=== PATIENT | male | born 2000 | race Caucasian/White ===

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

== ENCOUNTER 2023-04-09 12:33 | Emergency (ER) | payer MEDICAID ==
[2023-04-09 13:20] VITALS: BP 129/88; PULSE 100
== END 2023-04-09 14:55 | disposition home or self-care (01) ==
LOC: JP.ED 12:33
DX: R09.1 Pleurisy (principal); L60.0 Ingrowing nail; Z91.041 Radiographic dye allergy status; Z88.0 Allergy status to penicillin; Z88.8 Allergy status to other drugs, medicaments and biological substances; Z79.899 Other long term (current) drug therapy; Z86.16 Personal history of COVID-19
CPT/HCPCS: 99284

== ENCOUNTER 2023-06-02 10:10 | Emergency (ER) | payer MEDICAID ==
[2023-06-02 10:20] VITALS: BP 149/96; PULSE 78
[2023-06-02 11:11] LABS: BASE EXCESS VENOUS -0.2 mm/L; BICARBONATE,VENOUS 24.5 mmol/L; CARBOXYHEMOGLOBIN 1.9 % (0.0-1.6); O2 SATURATION VENOUS 78.6; OXYHEMOGLOBIN 76.3 %; PCO2 VENOUS 42.3 mm/Hg; PH,VENOUS 7.381 (7.350-7.450); PO2 VENOUS 43.5 mm/Hg; TOTAL HEMOGLOBIN 17.2 g/dL (13.5-18.0)
[2023-06-02 11:13] LABS: BASOPHILS ABSOLUTE AUTO 0.08 K/uL (0.00-0.10); BASOPHILS PERCENT AUTO 1.3 % (0.1-1.3); EOSINOPHILS ABSOLUTE AUTO 0.26 K/uL (0.00-0.40); EOSINOPHILS PERCENT AUTO 4.2 % (0.0-5.4); HEMATOCRIT 46.3 % (38.4-49.7); HEMOGLOBIN 16.4 g/dL (12.9-16.9); IMMATURE GRAN PERCENT AUTO 0.3 % (0.0-0.7); LYMPHOCYTES ABSOLUTE AUTO 2.03 K/uL (0.8-3.3); LYMPHOCYTES PERCENT AUTO 32.5 % (11.4-47.7); MEAN CORPUSCULAR HEMOGLOBIN 30.8 pg (31.6-35.5); MEAN CORPUSCULAR HGB CONC 35.4 g/dL (31.6-35.5); MEAN CORPUSCULAR VOLUME 86.9 fL (81.4-99.0); MONOCYTES ABSOLUTE AUTO 0.51 K/uL (0.20-0.90); MONOCYTES PERCENT AUTO 8.2 % (3.3-12.6); NEUTROPHILS ABSOLUTE AUTO 3.35 K/uL (1.0-7.6); NEUTROPHILS PERCENT AUTO 53.5 % (40.0-78.1); PLATELET COUNT,PLT 177 K/uL (130-375); RED BLOOD CELL COUNT 5.33 M/uL (4.14-5.76); WHITE BLOOD CELL COUNT,WBC 6.3 K/uL (3.2-11.0)
[2023-06-02 11:16] LABS: IMMATURE GRAN ABSOLUTE AUTO 0.02 K/uL (0.00-0.23)
[2023-06-02 11:25] LABS: CORONAVIRUS COVID-19 NAA NEGATIVE (NEGATIVE); INFLUENZA A NAA NEGATIVE (NEGATIVE); INFLUENZA B NAA NEGATIVE (NEGATIVE); RESPIRATORY SYNCYTIAL VIR NAA NEGATIVE (NEGATIVE)
[2023-06-02 11:40] LABS: A/G RATIO 1.1 (1.2-2.2); ALANINE AMINOTRANSFERASE,ALT 23 U/L (12-78); ALKALINE PHOSPHATASE 122 U/L (46-116); ASPARTATE AMNIOTRANSFERASE,AST 17 U/L (15-37); BILIRUBIN TOTAL 0.6 mg/dL (0.2-1.0); BLOOD UREA NITROGEN,BUN 11 mg/dL (7-18); CALCIUM 8.4 mg/dL (8.5-10.1); CARBON DIOXIDE,CO2 26 mmol/L (21-32); CHLORIDE,CL 104 mmol/L (100-108); CREATININE 0.9 mg/dL (0.8-1.3); EST CRCL DRUG DOSING (CG) 138.28 mL/min; ESTIMATED GFR 125 mL/min (>60); GLUCOSE RANDOM 89 mg/dL (74-106); POTASSIUM,K 3.8 mmol/L (3.6-5.2); PROTEIN TOTAL,TP 7.8 g/dL (6.4-8.2); SODIUM,NA 139 mmol/L (140-148); TROPONIN I HIGH SENSITIVITY 5.2 pg/mL (<=60.3)
[2023-06-02 11:41] LABS: ANION GAP 12.8 mmol/L (5.0-14.0)
[2023-06-02] MEDS: Acetaminophen 500 MG Tab PO ONE (12:08)
== END 2023-06-02 12:25 | disposition home or self-care (01) ==
LOC: JP.ED 10:10
DX: R09.1 Pleurisy (principal); J45.909 Unspecified asthma, uncomplicated; Z86.16 Personal history of COVID-19; Z88.0 Allergy status to penicillin; Z88.1 Allergy status to other antibiotic agents; Z91.041 Radiographic dye allergy status
CPT/HCPCS: 0241U; 36415; 71045; 80053; 82803; 83605; 84145; 84484; 85025; 85379; 85651; 93005; 99285; A9270

== ENCOUNTER 2023-06-10 15:17 | Emergency (ER) | payer MEDICAID ==
[2023-06-10 15:33] VITALS: BP 142/96; PULSE 101
[2023-06-10 16:12] LABS: STREP A BY PCR NOT DETECTED (NOT DETECT)
[2023-06-10 16:22] LABS: CORONAVIRUS COVID-19 NAA NEGATIVE (NEGATIVE); INFLUENZA A NAA NEGATIVE (NEGATIVE); INFLUENZA B NAA NEGATIVE (NEGATIVE); RESPIRATORY SYNCYTIAL VIR NAA NEGATIVE (NEGATIVE)
== END 2023-06-10 16:57 | disposition home or self-care (01) ==
LOC: JP.ED 15:17
DX: L60.0 Ingrowing nail (principal); M54.50 Low back pain, unspecified; H66.002 Acute suppurative otitis media without spontaneous rupture of ear drum, left ear; Z86.16 Personal history of COVID-19; Z88.0 Allergy status to penicillin; Z88.1 Allergy status to other antibiotic agents; Z91.041 Radiographic dye allergy status
CPT/HCPCS: 0241U; 87651; 99283